=== PATIENT | male | born 1985 | race Caucasian/White ===

== ENCOUNTER 2020-08-30 19:08 | Inpatient (IN) | payer OTHER ==
[~2020-08-30] VITALS: Ht 188 cm; Wt 81.6 kg
[2020-08-30 19:59] LABS: BUN/CREATININE RATIO 13 (0-10)
[2020-08-30 20:11] LABS: HEMOGLOBIN 14.9 gm/dl (14.0-17.5); RED BLOOD COUNT 4.39 M/UL (4.20-5.50)
[2020-08-31 02:28] LABS: HEMOGLOBIN 13.9 gm/dl (14.0-17.5); RED BLOOD COUNT 4.1 M/UL (4.20-5.50)
[2020-08-31 02:45] LABS: BUN/CREATININE RATIO 13 (0-10)
--- NOTE | 2020-09-01 03:25 | NUR ---
PER YARED IN PHARMANY CEFAZOLIN IS COMPATABLE WITH IV FLUIDS(RALLY BAG)
[2020-09-01 04:13] LABS: HEMOGLOBIN 10.4 gm/dl (14.0-17.5); RED BLOOD COUNT 3.1 M/UL (4.20-5.50)
[2020-09-01] MEDS ORDERED: PERCOCET 5-3251 EACH PO (07:14)
[2020-09-02 06:45] LABS: HEMOGLOBIN 7.7 gm/dl (14.0-17.5); RED BLOOD COUNT 2.25 M/UL (4.20-5.50)
[2020-09-02 20:11] LABS: HEMOGLOBIN 8.7 gm/dl (14.0-17.5); WHITE BLOOD COUNT 7.8 K/UL (4.5-11.0)
[2020-09-02 20:13] LABS: RED BLOOD COUNT 2.6 M/UL (4.20-5.50)
[2020-09-03 00:35] LABS: HEMOGLOBIN 9.2 gm/dl (14.0-17.5); RED BLOOD COUNT 2.76 M/UL (4.20-5.50); WHITE BLOOD COUNT 8.1 K/UL (4.5-11.0)
[2020-09-03 00:54] LABS: BUN/CREATININE RATIO 5 (0-10)
[2020-09-03] MEDS ORDERED: KEPPRA 500 MG500 MG PO ×2 (12:02→15:31)
[2020-09-03] MEDS ORDERED: DILTIAZEM 24HR120 M1 PO ×2 (12:02→15:31)
[2020-09-03] MEDS ORDERED: PERCOCET 5-3251 EACH PO (15:31)
== END 2020-09-03 14:35 | disposition home or self-care (01) | DRG 493 ==
LOC: ER1 19:08 → CDU 22:04 → MED SURG 4 22:04
PROVIDERS: Internal Medicine; Orthopaedic Surgery; ADMIT Internal Medicine
PROC: 0LS40ZZ Reposition Left Upper Arm Tendon, Open Approach (ICD-10-PCS; 2020-08-31)
PROC: 0RHK04Z Insertion of Internal Fixation Device into Left Shoulder Joint, Open Approach (ICD-10-PCS; 2020-08-31)
PROC: 0PSD04Z Reposition Left Humeral Head with Internal Fixation Device, Open Approach (ICD-10-PCS; principal; 2020-08-31 19:15)
PROC: 30233N1 Transfusion of Nonautologous Red Blood Cells into Peripheral Vein, Percutaneous Approach (ICD-10-PCS; 2020-09-02)
DX: S42.252A Displaced fracture of greater tuberosity of left humerus, initial encounter for closed fracture (principal); D62 Acute posthemorrhagic anemia; W18.30XA Fall on same level, unspecified, initial encounter; G40.909 Epilepsy, unspecified, not intractable, without status epilepticus; I48.91 Unspecified atrial fibrillation; T45.0X5A Adverse effect of antiallergic and antiemetic drugs, initial encounter; F17.210 Nicotine dependence, cigarettes, uncomplicated; F10.10 Alcohol abuse, uncomplicated; Z20.822 Contact with and (suspected) exposure to COVID-19
CPT/HCPCS: ECHO; 36415; 36430; 70450; 70551; 73030; 73060; 73200; 76000; 80048; 80053; 80307; 83605; 83735; 84100; 84132; 85025; 85027; 85610; 85730; 86850; 86900; 86901; 86920; 93005; 93306; 95816; 96365; 96375; 96376; 99285; C1713; J0690; J1100; J1885; J1953; J2001; J2060; J2250; J2270; J2405; J2704; J2710; J2795; J3010; J3411; J3475; J7030; J7120; P9016; Q9967; U0002

== ENCOUNTER 2022-01-10 03:18 | Emergency (ER) | payer OTHER ==
[~2022-01-10 03:18] MED LIST: DILTIAZEM 24HR120 M1 PO; KEPPRA 500 MG500 MG PO; PERCOCET 5-3251 EACH PO
[2022-01-10] MEDS ORDERED: KEPPRA750 MG PO (04:01)
[2022-01-10] MEDS ORDERED: VALTOCO20 MG/0.2 ×3 (04:46→04:54)
[2022-01-10] MEDS ORDERED: ENDOCET 5-3251 EACH PO (04:52)
== END 2022-01-10 04:50 | disposition home or self-care (01) ==
LOC: ER1 03:18
DX: G40.409 Other generalized epilepsy and epileptic syndromes, not intractable, without status epilepticus (principal); J02.9 Acute pharyngitis, unspecified; Z79.899 Other long term (current) drug therapy; Z91.018 Allergy to other foods
CPT/HCPCS: 71045; 93005; 99284

== ENCOUNTER 2022-01-15 02:50 | Emergency (ER) | payer OTHER ==
[~2022-01-15 02:50] MED LIST changes: +ENDOCET 5-3251 EACH PO; +KEPPRA750 MG PO; +VALTOCO20 MG/0.2
[2022-01-15 03:53] LABS: HEMOGLOBIN 14.9 gm/dl (14.0-17.5); RED BLOOD COUNT 4.48 M/UL (4.20-5.50)
[2022-01-15 04:14] LABS: BUN/CREATININE RATIO 12 (0-10)
[2022-01-15] MEDS ORDERED: HYDROCODON-ACE1 EAC4 PO (06:39)
== END 2022-01-15 07:25 | disposition home or self-care (01) ==
LOC: ER1 02:50
PROVIDERS: Student in an Organized Health Care Education/Training Program
DX: S22.31XA Fracture of one rib, right side, initial encounter for closed fracture (principal); J45.909 Unspecified asthma, uncomplicated; E87.6 Hypokalemia; F17.290 Nicotine dependence, other tobacco product, uncomplicated; R00.0 Tachycardia, unspecified; X58.XXXA Exposure to other specified factors, initial encounter
CPT/HCPCS: 71045; 80053; 82550; 82553; 84484; 85025; 94664; 96374; 96375; 99285; J2060; J2930; Q9967